=== PATIENT | female | born 1970 | race African-American/Black ===

== ENCOUNTER 2020-12-25 13:51 | Emergency (ER) | payer OTHER ==
[~2020-12-25] VITALS: Ht 170.2 cm; Wt 149.7 kg
[2020-12-25] MEDS: ASPIRIN 325 MG TAB PO ONE (14:28)
[2020-12-25] MEDS ORDERED: ASPIRIN 325 MG TAB ONE (14:35)
[2020-12-25] MEDS ORDERED: IOPAMIDOL 370 MG/ML 200 ML INFUS..BTL INJ ONE (15:44)
[2020-12-25] MEDS ORDERED: SODIUM CHLORIDE 0.9% 50ML 50 ML ONE (15:44)
[2020-12-25] MEDS ORDERED: SODIUM CHLORIDE 0.9% 1000ML 1,000 ML ONE (15:46)
[2020-12-25] MEDS: SODIUM CHLORIDE 0.9% 1000ML 1,000 ML IV SCH (16:00)
[2020-12-25 17:37] VITALS: BP 129/63
== END 2020-12-25 17:41 | disposition home or self-care (01) ==
LOC: FSED 14:21
DX: R07.9 Chest pain, unspecified (principal); R73.9 Hyperglycemia, unspecified; E66.01 Morbid (severe) obesity due to excess calories; G47.419 Narcolepsy without cataplexy
CPT/HCPCS: 71046; 71260; 80053; 82553; 84484; 85025; 99284; J7030; Q9967